=== PATIENT | female | born 1940 | race Caucasian/White ===

== ENCOUNTER 2017-12-16 12:52 | Emergency (ER) | payer MEDICARE, SELFPAY ==
[2017-12-16 12:55] VITALS: BP 134/109; PULSE 94; RESP 18; TEMP 36.7; O2SAT 98; BMI 38.5
[2017-12-16 13:16] VITALS: BP 117/76; PULSE 110; RESP 18; O2SAT 98
--- NOTE | 2017-12-16 13:17 | EKG12_ITS ---
Test Reason : GI BLEED Blood Pressure : / mmHG Vent. Rate : 125 BPM Atrial Rate : 120 BPM P-R Int : 000 ms QRS Dur : 068 ms QT Int : 320 ms P-R-T Axes : 000 050 193 degrees QTc Int : [address] & T wave abnormality, consider inferolateral ischemia Abnormal ECG Confirmed by VERONICA SIDHU, YUKO ([id number]), news copy editor LEANDRO CARDENAS ([id number]) on 12/18/2017 10:41:07 AM Referred By: JWAYYED Confirmed By:YUKO MARTIN MD
--- NOTE | 2017-12-16 13:39 | RAD_ITS ---
STUDY: X-RAY - ABDOMEN/PELVIS REASON FOR EXAM: Female, 77 years old. Documentation of nasogastric tube placement. TECHNIQUE: Single AP view of the abdomen / pelvis. COMPARISON: Prior comparison studies are not available for review at this time. FINDINGS: Patient has an intracardiac pacemaker. There may be a small hiatal hernia. There is an unremarkable bowel gas pattern. Enteric tube tip is visible in left upper quadrant. The sidehole may be still in the distal esophagus. There is no obvious visceromegaly, mass, dilated bowel or pathologic calcifications. Normal soft tissue structures. The bones appear osteopenic. Patient appears to have had previous surgery of the left hip. RAD/Abdomen Single View (Portable) IMPRESSION: Suggest advancement of the enteric tube approximately 10 cm. Electronically Signed: Sudha Whitehead MD at 15:16 EST , Service support ,
--- NOTE | 2017-12-16 13:40 | ED.VISSUMM ---
- ER Visit Summary Date of Service: 12/16/17 Chief Complaint: [] Vomiting blood passing blood per rectum fatigue dizziness History of Present Illness: The patient is a 77 F [] history of cardiac pacemaker, ulcer,, unspecified cardiac pig valve surgery, not on anticoagulants, son committed suicide Sunday she has been depressed and upset about all the above, she is basically not been eating or drinking or doing much activities. This morning she vomited blood and passed quite a bit of blood per rectum she complained of being dizzy she could not stand and walk family brought her to the hospital. She has no history of upper lower GI bleed, history of family believes cardiac stents she is only on aspirin Physical Examination: [] Her vital signs are stable blood pressure 117/85 heart rate 120 A. fib on the monitor which was no HEENT exam is unremarkable oral cavity is unremarkable the lungs are clear the heart tones are regular 120 the abdomen is soft nontender rectal exam shows melanotic stool in the rectum, neurologically she is awake she is moving all 4 complaining of fatigue her NIH is 0 her speech is easy to understand there is no signs of a stroke I suspect her dizziness is related to the above Test Results: [] Emergency Department Course and Treatment: [] Given the potential for upper and/or lower GI bleed hypotension etc. new-onset A. fib she is obtained IV fluids ?2 bolus screening labs chest x-ray EKG, I am informed there is no GI coverage at [facility] for the next few days the family is asking be transferred to [facility] where the patient's been seen before Treatment Plan: [] Her baseline hemoglobin a few weeks ago was about 12-1/2 is currently 8 the rest of her screening labs are unremarkable, we did place an NG tube productive of clear stomach content no blood her vital signs have remained stable, I discussed with the family they again would like her transfer to [facility] be begun transfusion of blood given the above, I spoke with the [facility] transfer line they are arranging for her transfer she. Disposition: [] Transfer Impression: [] GI bleed, anemia, new onset A. fib, transferred [facility] per family's request Talk with Dr. VICKI OSORIO at [facility] except the patient in transfer This note was generated with [employer] dictation software. It may contain incorrect words, spelling, and punctuation that were not noted in review of the chart prior to signing ED Disposition - Plan for ED Patient: Chief Complaint: GI Bleed Referrals: Agatha Sylvester DO [Primary Care Provider] -
[2017-12-16] MEDS: 0.9% Normal Saline 1,000 ML 125 ML IV (13:53)
[2017-12-16 14:04] LABS: Absolute Lymphocyte Count 0.83 X10^3/ul (0.83-4.51); Absolute Neutrophil Count 11.7 X10^3/uL (2.0-7.7); Basophil# 0.02 X10^3/uL; Basophil% 0.1 % (0-1); Eosinophil# 0.05 X10^3/uL; Eosinophils% 0.4 % (0-5); Hematocrit 25.9 % (37-47); Hemoglobin 8.4 g/dl (12.0-15.0); Lymphocyte # 0.83 X10^3/ul (4.0); Lymphocyte % 6.2 % (19-41); Mean Corp Hgb Conc 32.4 g/gl (32-36); Mean Corpuscular Hgb 29.5 pg (27.0-32.0); Mean Corpuscular Volume 90.9 fL (81-99); Mean Platelet Vol. 10.9 fl (6.2-12.0); Monocyte# 0.73 X10^3/uL; Monocyte% 5.5 % (0-10); Neutrophil # 11.72 X10^3/uL (2.7-7.7); Neutrophil % 87.7 % (47-70); POSITIVE COUNT NO; POSITIVE DIFFERENTIAL NO; POSITIVE MORPHOLOGY NO; Platelet Count 273 K/mm3 (150-450); RBC Distribution Width CV 14.5 % (11.6-14.6); RBC Distribution Width SD 47.6 fl (35.1-43.9); Red Blood Count 2.85 M/mm3 (4.2-5.4); White Blood Count 13.4 K/mm3 (4.4-11.0)
[2017-12-16 14:25] LABS: AST(SGOT) 27 U/L (15-37); Alanine Aminotransfer ALT/SGPT 35 U/L (12-78); Albumin, Serum 2.8 g/dL (3.2-5.0); Alkaline Phosphatase 66 U/L (45-117); Anion Gap 9 (5-15); BUN 60 mg/dL (7-18); BUN/Creat Ratio 57.1 RATIO (10-20); Bilirubin, Direct 0.12 mg/dL (0.00-0.30); Calcium,Total 7.9 mg/dL (8.5-10.1); Chloride 105 mmol/L (98-107); Creatinine, Serum 1.05 mg/dL (0.55-1.02); EST Glomerular Filtration Rate 54 mL/min (>60); Est Glom Filt Rate - Afr Amer 66 mL/min (>60); Estimated Creatinine Clearance 63.29 ml/min; Globulin 3.2 g/dL (2.2-4.2); Glucose 107 mg/dL (70-110); Lipase 76 U/L (73-393); Potassium 4.3 mmol/L (3.5-5.1); Sodium Level 138 mmol/L (136-145)
[2017-12-16 15:00] VITALS: BP 120/77; PULSE 117; RESP 18; O2SAT 99
[2017-12-16 15:20] LABS: Mucous, Urine 0 SEEN /hpf (<or=2+); Red Blood Cells-Urine 0 SEEN /hpf (0-5); Squamous Epithelial Cells - UA 0 SEEN /hpf (5-10)
[2017-12-16 15:21] LABS: Color, Urine Yellow (Yellow); Glucose, Dipstick Normal (Normal); Ketone-Dipstick Negative (Negative); Leukocyte Esterase-Dipstick 25 /ul (Negative); Nitrite-Dipstick Positive (Negative); Occult Blood-Urine Negative /ul (Negative); Protein-Dipstick Negative (Negative); Urine Bilirubin Dipstick Negative (Negative); Urine Clarity Clear (Clear); Urine Urobilinogen Normal (Normal)
[2017-12-16 15:34] LABS: Bacteria 1+ /hpf (None Seen); White Blood Cells 0-5 SEEN /hpf (0-5)
--- NOTE | 2017-12-16 15:53 | ED.RN ---
family and pt stated they do not want her to get blood at this time. had previous reaction and wants to wait until getting to [place].
[2017-12-16 16:30] VITALS: BP 125/94; PULSE 122; RESP 16; O2SAT 99
[2017-12-16 16:54] VITALS: BP 122/77
== END 2017-12-16 16:55 | disposition short-term general hospital (02) ==
PROVIDERS: Emergency Provider Emergency Medicine; Family Provider Family Medicine; PCP Family Medicine
DX: K92.1 Melena (principal); K92.0 Hematemesis; D64.9 Anemia, unspecified; I48.91 Unspecified atrial fibrillation; I25.10 Atherosclerotic heart disease of native coronary artery without angina pectoris; I10 Essential (primary) hypertension; E78.00 Pure hypercholesterolemia, unspecified; Z95.0 Presence of cardiac pacemaker; Z95.4 Presence of other heart-valve replacement; Z79.82 Long term (current) use of aspirin; Z79.899 Other long term (current) drug therapy
CPT/HCPCS: 51702; 74018; 80048; 80076; 81001; 83690; 84484; 85025; 86850; 86900; 86920; 93005; 96360; 96361; 99285; J7030; J7040; A4216

== ENCOUNTER 2017-12-21 18:26 | Emergency (ER) | payer MEDICARE, SELFPAY ==
[2017-12-21 18:27] VITALS: BP 152/77; PULSE 85; RESP 18; TEMP 36.6; O2SAT 98; BMI 29.5
--- NOTE | 2017-12-21 18:53 | EKG12_ITS ---
Test Reason : Blood Pressure : / mmHG Vent. Rate : 096 BPM Atrial Rate : 091 BPM P-R Int : 000 ms QRS Dur : 070 ms QT Int : 364 ms P-R-T Axes : 000 027 087 degrees QTc Int : 459 ms Atrial fibrillation with frequent ventricular-paced complexes Septal infarct , age undetermined Abnormal ECG Confirmed by CHRISTOPHER SIDHU, BRANDI ([id number]), newspaper editor LEANDRO CARDENAS ([id number]) on 12/24/2017 3:34:10 PM Referred By: AZIZA Confirmed By:BRANDI WHITE MD
--- NOTE | 2017-12-21 18:58 | ED.DCSUM_ITS ---
- ER Visit Summary Date of Service: 12/21/17 Chief Complaint: [] GI bleed History of Present Illness: The patient is a 77 F [] presenting with lower GI bleed starting today. Patient reports she was seen less than a week ago in this emergency department for a similar complaint and was transferred to [place] and was an inpatient for several days for lower GI bleed and required blood transfusion. Patient reports she noticed the onset of dark tarry stool and a small amount of bright red blood per rectum. Patient denies chest pain or shortness of breath or dizziness. Her daughter is at the bedside and providing history as well. Physical Examination: [] Afebrile, vital signs stable. Elderly female in no acute distress. Cardiovascular exam is regular rate and rhythm. Lungs are clear to auscultation. Abdomen is soft and nontender. Patient has no obvious internal masses or hemorrhoids on the internal rectal exam. No bright red blood per rectum. Melena on exam. Test Results: [] Guaiac positive stool. Melena. CBC reveals a hemoglobin of 8.4. Comprehensive metabolic panel was negative. INR 1.2. EKG shows atrial fibrillation with a rate in the 90s without ectopy. Emergency Department Course and Treatment: [] Patient given intravenous fluid bolus. Patient remained hemodynamically stable throughout the entire ED visit. Patient and patient's family were counseled regarding the laboratory findings. They requested transfer to [facility]. Case was discussed with the [facility] hospitalist. They called back after GI reportedly accepted the patient. Treatment Plan: [] Transfer to [facility]. Disposition: [] Transfer, stable. Impression: [] Lower GI bleed Anemia This note was generated with [employer] dictation software. It may contain incorrect words, spelling, and punctuation that were not noted in review of the chart prior to signing ED Disposition - Plan for ED Patient: Chief Complaint: GI Bleed Referrals: Agatha Sylvester DO [Primary Care Provider] -
[2017-12-21 19:21] LABS: Absolute Lymphocyte Count 1.03 X10^3/ul (0.83-4.51); Absolute Neutrophil Count 6.7 X10^3/uL (2.0-7.7); Basophil# 0.02 X10^3/uL; Basophil% 0.2 % (0-1); Eosinophil# 0.16 X10^3/uL; Eosinophils% 1.9 % (0-5); Hemoglobin 8.4 g/dl (12.0-15.0); Lymphocyte # 1.03 X10^3/ul (4.0); Lymphocyte % 12.2 % (19-41); Mean Corp Hgb Conc 31.1 g/gl (32-36); Mean Corpuscular Hgb 29.1 pg (27.0-32.0); Mean Corpuscular Volume 93.4 fL (81-99); Mean Platelet Vol. 10.3 fl (6.2-12.0); Monocyte% 5.9 % (0-10); Neutrophil # 6.68 X10^3/uL (2.7-7.7); Neutrophil % 79.6 % (47-70); POSITIVE COUNT NO; POSITIVE DIFFERENTIAL NO; POSITIVE MORPHOLOGY NO; Platelet Count 201 K/mm3 (150-450); RBC Distribution Width SD 49.7 fl (35.1-43.9); Red Blood Count 2.89 M/mm3 (4.2-5.4); White Blood Count 8.4 K/mm3 (4.4-11.0)
[2017-12-21 19:28] LABS: International Normalized Ratio 1.2; Prothrombin Time (Protime)PT. 14.6 SECONDS (11.7-14.9)
[2017-12-21 19:29] LABS: Partial Thromboplast Time 35.3 Seconds (24.1-36.2)
[2017-12-21 19:38] LABS: ALB/GLOB Ratio 0.9 RATIO (0.9-2.4); AST(SGOT) 35 U/L (15-37); Alanine Aminotransfer ALT/SGPT 39 U/L (13-56); Albumin, Serum 2.9 g/dL (3.2-5.0); Alkaline Phosphatase 92 U/L (45-117); Anion Gap 8 (5-15); BUN 22 mg/dL (7-18); BUN/Creat Ratio 19.5 RATIO (10-20); Calcium,Total 8.2 mg/dL (8.5-10.1); Chloride 103 mmol/L (98-107); Creatinine, Serum 1.13 mg/dL (0.55-1.02); EST Glomerular Filtration Rate 50 mL/min (>60); Est Glom Filt Rate - Afr Amer 60 mL/min (>60); Estimated Creatinine Clearance 37.15 ml/min; Globulin 3.3 g/dL (2.2-4.2); Glucose 105 mg/dL (74-106); Protein, Total 6.2 g/dL (6.4-8.2); Sodium Level 136 mmol/L (136-145)
--- NOTE | 2017-12-21 19:51 | ED.RN ---
FOOD CHECKER ALARMING, DISPLAYING HEART RATES UP TO 180'S. THIS RN CHECKED RADIAL PULSE FOR ONE MINUTE, HEART RATE 94. CONTINUED INTERMITTENT CHECKING OF RADIAL PULSE AND HEART RATE NOT OVER 100 BPM. ED MD NOTIFIED, 500 ML NS BOLUS ORDERED. PT DOES HAVE DUAL PACER AND AFIB, HEART RATE REMAINS IRREGULAR, PT IS ASYMPTOMATIC.
[2017-12-21 20:39] VITALS: BP 159/81; PULSE 98; RESP 17; O2SAT 98
[2017-12-21 21:02] VITALS: BP 155/77; PULSE 96; RESP 18; TEMP 36.8; O2SAT 97
[2017-12-21 22:12] VITALS: BP 167/64; PULSE 101; RESP 18; O2SAT 97
== END 2017-12-21 22:13 | disposition short-term general hospital (02) ==
LOC: ED 18:58
PROVIDERS: Emergency Provider Emergency Medicine; Family Provider Family Medicine; PCP Family Medicine
DX: K92.1 Melena (principal); D64.9 Anemia, unspecified; I48.91 Unspecified atrial fibrillation; I10 Essential (primary) hypertension; E78.00 Pure hypercholesterolemia, unspecified; Z95.0 Presence of cardiac pacemaker; Z79.82 Long term (current) use of aspirin; Z79.899 Other long term (current) drug therapy
CPT/HCPCS: 80053; 85025; 85610; 85730; 86850; 86900; 93005; 99284; J7040; J7050; A4216

== ENCOUNTER 2017-12-27 15:06 | Emergency (ER) | payer MEDICARE, SELFPAY ==
[2017-12-21 22:12] VITALS: BP 167/64
[2017-12-27 15:07] VITALS: BP 161/109; PULSE 102; RESP 14; TEMP 36.6; O2SAT 97; BMI 36.7
--- NOTE | 2017-12-27 15:40 | EKG12_ITS ---
Test Reason : Blood Pressure : / mmHG Vent. Rate : 101 BPM Atrial Rate : 090 BPM P-R Int : 000 ms QRS Dur : 080 ms QT Int : 362 ms P-R-T Axes : 000 029 165 degrees QTc Int : 469 ms Atrial fibrillation Nonspecific T wave abnormality Abnormal ECG Confirmed by VERONICA SIDHU, YUKO ([id number]), supervising editor news reel LEANDRO CARDENAS ([id number]) on 12/28/2017 3:10:41 PM Referred By: SULEMAN Confirmed By:YUKO MARTIN MD
--- NOTE | 2017-12-27 15:41 | VDLE_ITS ---
Reason For Study: swelling RIGHT LEFT GSV is normal. CFV is compressible, spontaneous, phasic, CFV is compressible, spontaneous, phasic, competent, and demonstrates normal competent and demonstrates normal augmentation. augmentation. FV is compressible, spontaneous, phasic, competent and demonstrates normal augmentation. POP V is compressible, spontaneous, phasic, competent and demonstrates normal augmentation. T/P Trunk is compressible. PTV is compressible. RT PerV is compressible. Soleus V is dilated and noncompressible. Procedure Exam performed portable in ED. The exam was diagnostic. A preliminary report was called and/or faxed to Dr. Campbell. Interpretation Summary 1. Right leg Soleal vein DVT. Ordering Physician: Stephen Campbell Performed By: Domo Green RVT
--- NOTE | 2017-12-27 15:45 | ED.DCSUM_ITS ---
- ER Visit Summary Date of Service: 12/27/17 Chief Complaint: Shortness of breath and right leg swelling History of Present Illness: The patient is a 77 F of A. fib, recent GI bleed, anemia, dependent diabetes, renal insufficiency pending of shortness of breath and right lower leg swelling. No prior history of DVT or PE. No chest pain. No hemoptysis. No fever. Daughter states patient recently was seen at [place] [facility] transferred [place] discharged home and seen back at [place] within a few days and transferred and admitted to [facility]. She has had a recent upper endoscopy. She has also needed transfuse 3 units of blood in the last week. Physical Examination: Vital signs are stable and afebrile. Pulse ox is 97% on room air no signs of hypoxia. H EENT exam unremarkable. Neck is nontender no JVD. Lungs clear to auscultation bilaterally. Heart irregularly irregular rate about 100 no murmur. Monitor appears to be A. fib. Abdomen soft and nontender. Normal bowel sounds no peritoneal signs. Extremities she is moving all 4. Neurovascular intact. She seems to have edema both lower extremities worse on the right. I do not appreciate any tenderness in either calf. Neurologic exam is normal. She is awake and alert. Answering questions. She does seem slightly pale. Test Results: Seizures white count 6. H&H 1032 which is actually improving her most recent hemoglobin was 8. BMP normal. Normal creatinine and gap. Troponin normal. EKG A. fib rate of 101 with a history of A. fib no signs of IA or ischemia. Chest x-ray chronic changes no acute process. An ultrasound of the right lower extremity shows a soleal vein right calf DVT. As discussed with the maintenance technician 3rd shift. Emergency Department Course and Treatment: Patient with leg swelling which may or may not be a DVT which would be ultrasounded and also generalized shortness of breath. Treatment Plan: Repeat exam patient is doing well at 67. I went over all of her tests with both her and her family. I also spoke with her primary care physician Dr. Higinio silvestre and I are in agreement to hold off on anticoagulation at this time as is the patient and family. And her primary care physician will follow up next week with repeat ultrasound of the right lower extremity and determine at that time if further therapy or anticoagulation is needed. Disposition: Discharge Impression: Acute right calf soleal vein DVT Status post recent GI bleed with improving anemia This note was generated with [employer] dictation software. It may contain incorrect words, spelling, and punctuation that were not noted in review of the chart prior to signing ED Disposition - Plan for ED Patient: Chief Complaint: Edema Referrals: Agatha Sylvester DO [Primary Care Provider] -
--- NOTE | 2017-12-27 16:00 | RAD_ITS ---
STUDY: X-RAY CHEST REASON FOR EXAM: Female, 77 years old. Chest pain. TECHNIQUE: Portable upright COMPARISON: None. FINDINGS: There is perihilar fullness associated with indistinct pulmonary bronchovasculature and prominent interstitial markings. There is a dual-lead pacer device in place. There is cardiomegaly. There is atherosclerotic calcification of the aortic arch with tortuosity. Normal visualized thoracic spine. Normal visualized ribs, clavicles, and shoulders. There is no demonstrated abnormality of the visualized soft tissue structures of the upper abdomen. RAD/Chest 1 View (Portable) IMPRESSION: Findings suggestive of congestive heart failure. Electronically Signed: Federica Downing MD at 16:28 EST Tel , Service support ,
[2017-12-27 16:27] LABS: Absolute Lymphocyte Count 0.91 X10^3/ul (0.83-4.51); Absolute Neutrophil Count 5.3 X10^3/uL (2.0-7.7); Basophil# 0.02 X10^3/uL; Basophil% 0.3 % (0-1); Eosinophil# 0.11 X10^3/uL; Eosinophils% 1.6 % (0-5); Lymphocyte # 0.91 X10^3/ul (4.0); Lymphocyte % 13.1 % (19-41); Mean Corp Hgb Conc 31.3 g/gl (32-36); Mean Corpuscular Hgb 29.6 pg (27.0-32.0); Mean Corpuscular Volume 94.7 fL (81-99); Mean Platelet Vol. 9.7 fl (6.2-12.0); Monocyte# 0.58 X10^3/uL; Monocyte% 8.4 % (0-10); Neutrophil # 5.31 X10^3/uL (2.7-7.7); Neutrophil % 76.5 % (47-70); POSITIVE COUNT NO; POSITIVE DIFFERENTIAL NO; POSITIVE MORPHOLOGY NO; Platelet Count 240 K/mm3 (150-450); RBC Distribution Width SD 56.7 fl (35.1-43.9); Red Blood Count 3.38 M/mm3 (4.2-5.4); White Blood Count 6.9 K/mm3 (4.4-11.0)
[2017-12-27 16:52] LABS: Anion Gap 10 (5-15); BUN 20 mg/dL (7-18); BUN/Creat Ratio 21.9 RATIO (10-20); Calcium,Total 8.4 mg/dL (8.5-10.1); Chloride 109 mmol/L (98-107); Creatinine, Serum 0.91 mg/dL (0.55-1.02); EST Glomerular Filtration Rate 64 mL/min (>60); Est Glom Filt Rate - Afr Amer 77 mL/min (>60); Estimated Creatinine Clearance 46.13 ml/min; Glucose 102 mg/dL (74-106); Potassium 4.5 mmol/L (3.5-5.1); Sodium Level 139 mmol/L (136-145)
--- NOTE | 2017-12-27 17:09 | ED.DEP ---
ED Disposition - Plan for ED Patient: Disposition: Home or Assisted Living Chief Complaint: Edema Instructions: ED DVT Referrals: Agatha Sylvester, [Primary Care Provider] - As soon as possible Additional Instructions: Blood clot in your right calf. Because a recent GI bleed we are going to hold off on anticoagulation or thin your blood at this time. Please call your primary care physician Dr. Agatha Sylvester who I spoke with today as we discussed and she will repeat ultrasound your leg next week to see if it is improving or getting worse and determine at that time whether she needs to start you on any medication.
[2017-12-27 17:46] VITALS: BP 174/107; PULSE 88; RESP 18; O2SAT 100
== END 2017-12-27 17:48 | disposition home or self-care (01) ==
PROVIDERS: Emergency Provider Emergency Medicine; Family Provider Family Medicine; PCP Family Medicine
DX: I82.4Z1 Acute embolism and thrombosis of unspecified deep veins of right distal lower extremity (principal); D64.9 Anemia, unspecified; R06.00 Dyspnea, unspecified; I48.91 Unspecified atrial fibrillation; N28.9 Disorder of kidney and ureter, unspecified; Z87.19 Personal history of other diseases of the digestive system; Z86.73 Personal history of transient ischemic attack (TIA), and cerebral infarction without residual deficits; Z79.899 Other long term (current) drug therapy
CPT/HCPCS: 71045; 80048; 84484; 85025; 93005; 93971; 99285; A4216

== ENCOUNTER → 2018-01-02 15:24 | Outpatient (CLI) | payer MEDICARE, SELFPAY ==
[2018-01-02 17:57] LABS: Absolute Lymphocyte Count 0.65 X10^3/ul (0.83-4.51); Absolute Neutrophil Count 5.3 X10^3/uL (2.0-7.7); Basophil# 0.01 X10^3/uL; Basophil% 0.2 % (0-1); Eosinophil# 0.07 X10^3/uL; Eosinophils% 1.1 % (0-5); Hematocrit 34.1 % (37-47); Hemoglobin 10.6 g/dl (12.0-15.0); Lymphocyte # 0.65 X10^3/ul (4.0); Lymphocyte % 10.1 % (19-41); Mean Corp Hgb Conc 31.1 g/gl (32-36); Mean Corpuscular Hgb 29.4 pg (27.0-32.0); Mean Corpuscular Volume 94.5 fL (81-99); Mean Platelet Vol. 10.4 fl (6.2-12.0); Monocyte# 0.47 X10^3/uL; Monocyte% 7.3 % (0-10); Neutrophil # 5.25 X10^3/uL (2.7-7.7); Neutrophil % 81.1 % (47-70); POSITIVE COUNT NO; POSITIVE DIFFERENTIAL NO; POSITIVE MORPHOLOGY NO; Platelet Count 204 K/mm3 (150-450); RBC Distribution Width CV 16.6 % (11.6-14.6); RBC Distribution Width SD 57.2 fl (35.1-43.9); Red Blood Count 3.61 M/mm3 (4.2-5.4); White Blood Count 6.5 K/mm3 (4.4-11.0)
[2018-01-02 19:00] LABS: ALB/GLOB Ratio 0.9 RATIO (0.9-2.4); AST(SGOT) 27 U/L (15-37); Alanine Aminotransfer ALT/SGPT 37 U/L (13-56); Albumin, Serum 3.1 g/dL (3.2-5.0); Alkaline Phosphatase 95 U/L (45-117); Anion Gap 11 (5-15); BUN 13 mg/dL (7-18); BUN/Creat Ratio 17.1 RATIO (10-20); Calcium,Total 8.5 mg/dL (8.5-10.1); Chloride 102 mmol/L (98-107); Creatinine, Serum 0.76 mg/dL (0.55-1.02); EST Glomerular Filtration Rate 79 mL/min (>60); Est Glom Filt Rate - Afr Amer 96 mL/min (>60); Globulin 3.6 g/dL (2.2-4.2); Glucose 106 mg/dL (74-106); Potassium 4.3 mmol/L (3.5-5.1); Protein, Total 6.7 g/dL (6.4-8.2); Sodium Level 134 mmol/L (136-145)
== END ==
PROVIDERS: Family Provider Family Medicine; PCP Family Medicine; Visit Provider Family Medicine
DX: K92.2 Gastrointestinal hemorrhage, unspecified (principal); D50.9 Iron deficiency anemia, unspecified; R60.9 Edema, unspecified
CPT/HCPCS: 36415; 80053; 85025

== ENCOUNTER → 2018-01-03 13:49 | Outpatient (CLI) | payer SELFPAY ==
--- NOTE | 2018-01-03 14:05 | VDLE_ITS ---
Reason For Study: calf pain RIGHT LEFT GSV is normal. GSV is normal. CFV is compressible, spontaneous, phasic, CFV is compressible, spontaneous, phasic, competent and demonstrates normal competent, and demonstrates normal augmentation. augmentation. FV is compressible, spontaneous, phasic, FV is compressible, spontaneous, phasic, competent and demonstrates normal competent and demonstrates normal augmentation. augmentation. POP V is compressible, spontaneous, phasic, POP V is compressible, spontaneous, phasic, competent and demonstrates normal competent and demonstrates normal augmentation. augmentation. T/P Trunk is compressible. T/P Trunk is compressible. PTV is compressible. PTV is compressible. RT PerV is compressible. LT PerV is compressible. Soleus V is dilated and noncompressible. Soleus V is dilated and noncompressible. Procedure Exam performed in department. The exam was diagnostic. Prelim faxed and voicemail left. Interpretation Summary Acute deep vein thrombosis is noted in the right soleus vein. The remainder of the right lower extremity deep venous system is patent and compressible. Acute deep vein thrombosis is noted in the left soleus vein. The remainder of the left lower extremity deep venous system is patent and compressible. Valvular competence appears intact within the proximal deep venous systems bilaterally. The greater saphenous veins appear bilaterally patent and compressible segmentally. Ordering Physician: Agatha Sylvester Performed By: Domo Green RVLyle
== END ==
PROVIDERS: Family Provider Family Medicine; PCP Family Medicine; Visit Provider Family Medicine
DX: I82.401 Acute embolism and thrombosis of unspecified deep veins of right lower extremity (principal); R60.0 Localized edema
CPT/HCPCS: 93970

== ENCOUNTER → 2018-01-09 16:15 | Outpatient (CLI) | payer MEDICARE, SELFPAY ==
[2018-01-09 17:16] LABS: Anion Gap 10 (5-15); BUN 17 mg/dL (7-18); BUN/Creat Ratio 18.9 RATIO (10-20); Calcium,Total 8.3 mg/dL (8.5-10.1); Chloride 101 mmol/L (98-107); EST Glomerular Filtration Rate 65 mL/min (>60); Est Glom Filt Rate - Afr Amer 79 mL/min (>60); Glucose 97 mg/dL (74-106); Potassium 3.4 mmol/L (3.5-5.1); Sodium Level 141 mmol/L (136-145)
== END ==
PROVIDERS: Family Provider Family Medicine; PCP Family Medicine; Visit Provider Family Medicine
DX: E11.9 Type 2 diabetes mellitus without complications (principal); N28.9 Disorder of kidney and ureter, unspecified
CPT/HCPCS: 80048